=== PATIENT | female | born 1995 | race Caucasian/White ===

== ENCOUNTER 2018-02-12 08:44 | Day surgery (SDC) | payer MEDICAID ==
[2018-02-08 17:44] LABS: HCG,QUAL RESULT NEGATIVE (NEGATIVE)
[~2018-02-12] VITALS: Ht 154.9 cm; Wt 59.0 kg
[2018-02-12 09:05] LABS: HCG,QUAL RESULT NEGATIVE (NEGATIVE)
[2018-02-12] MEDS ORDERED: fentaNYL CITRATE/PF 100 MCG/2 ML AMP IVP PRN ×2 (11:00)
[2018-02-12] MEDS ORDERED: ONDANSETRON HCL 4 MG/2 ML VIAL IVP PRN (11:00)
[2018-02-12 13:24] VITALS: BP_SYST 110
== END 2018-02-12 14:20 | disposition home or self-care (01) ==
LOC: SDS 08:44 → SMU 08:45 → SDS 14:20
PROVIDERS: ATTEND Otolaryngology
DX: J34.2 Deviated nasal septum (principal); J34.89 Other specified disorders of nose and nasal sinuses; G47.9 Sleep disorder, unspecified
CPT/HCPCS: 84703; 88305